=== PATIENT | male | born 1935 | race Caucasian/White ===

== ENCOUNTER 2017-03-28 21:15 | Observation (INO) | payer MEDICARE ==
[~2017-03-28] VITALS: Ht 172.7 cm; Wt 93.7 kg
[2017-03-28 21:22] VITALS: BP 112/57; PULSE 100; RESP 16; TEMP 98; O2SAT 96
--- NOTE | 2017-03-28 21:40 | PD ---
HPI Chief Complaint: GI Complaint Time Seen by Provider: 21:31 Travel History International Travel<30 days: No Contact w/Intl Traveler<30days: No Traveled to known affect area: No History of Present Illness HPI Patient is an 81-year-old male presents to emergency department for evaluation of rectal bleeding. Patient had a upper and lower endoscopy with Dr. Ledesma on this morning at about 07 100, states everything went fine he had one polyp removed from his ascending colon according documentation and then later this evening he started noticing some blood in his stool, just prior to arrival he had a large bowel movement filling the bowl with blood and some small clots. According to his he was sitting on a couch and had an episode where he became very pale and diaphoretic and was somewhat less responsive. He is hard of hearing. The same type of event happened in our waiting room with the patient became very pale while sitting upright. He denies any abdominal pain shortness of breath cough cold or congestion. The patient is on Pradaxa but is not taking this medication for 6 days prior to the procedure this morning and has been instructed not to take it for another 7 days after the procedure. He has been abiding by these recommendations has not had any blood thinner. PFSH Past Medical History Narrative Medical Atrial fibrillation, hypercholesterolemia ?: Not Past Surgical History Narrative Surgical Colonoscopy, back surgery Social History Tobacco Use: No Allergies-Medications (Allergen,Severity, Reaction): Coded Allergies: penicillin G (Unverified Allergy, Severe, 03/28/17) Reported Meds & Prescriptions Reported Meds & Active Scripts Active Reported Indomethacin 50 Mg Cap 50 Mg PO TID Take with food, milk, or antacids to decrease stomach adverse effects. Amlodipine-Benazepril 5-10 Mg Cap 1 Cap PO DAILY Cialis (Tadalafil) 5 Mg Tab 5 Mg PO DAILY Do not exceed 1 dose/day. Vitamin D3 (Cholecalciferol) 5,000 Unit Cap 5,000 Units PO DAILY Allopurinol 300 Mg Tab 300 Mg PO DAILY Simvastatin 20 Mg Tab 20 Mg PO DAILY Metoprolol Tartrate 50 Mg Tab 50 Mg PO BID Pradaxa (Dabigatran) 150 Mg Cap 150 Mg PO BID Review of Systems Except as stated in HPI: all other systems reviewed are Neg Physical Exam Narrative GENERAL: Well-developed well-nourished, no obvious distress SKIN: Focused skin assessment warm/dry. HEAD: Atraumatic. Normocephalic. EYES: Pupils equal and round. No scleral icterus. No injection or drainage. ENT: No nasal bleeding or discharge. Mucous membranes pink and moist. NECK: Trachea midline. No JVD. CARDIOVASCULAR: Regular rate and rhythm. No murmur appreciated. RESPIRATORY: No accessory muscle use. Clear to auscultation. Breath sounds equal bilaterally. GASTROINTESTINAL: Abdomen soft, non-tender, nondistended. Hepatic and splenic margins not palpable. Rectal exam does show a fair amount of blood in his underwear and on the stretcher. There is small blood clots as well. Grape size. MUSCULOSKELETAL: No obvious deformities. No clubbing. No cyanosis. No edema. NEUROLOGICAL: Awake and alert. Hearing aids in, otherwise cranial nerves II through XII are grossly intact and nonfocal, 5 out of 5 strength in all 4 extremities per PSYCHIATRIC: Appropriate mood and affect; insight and judgment normal. Data Data Last Documented VS Vital Signs Date Time Temp Pulse Resp B/P (MAP) Pulse Ox O2 Delivery O2 Flow Rate FiO2 03/28/17 23:27 84 18 115/81 (92) 98 Room Air 03/28/17 21:52 98.0 Orders Orders Complete Blood Count With Diff (03/28/17 21:31) Comprehensive Metabolic Panel (03/28/17 21:31) Lipase (03/28/17 21:31) Lactic Acid (03/28/17 21:31) Prothrombin Time / Inr (Pt) (03/28/17 21:31) Act Partial Throm Time (Ptt) (03/28/17 21:31) Urinalysis - C+S If Indicated (03/28/17 21:31) Ct Abd/Pel W Iv Contrast(Rout) (03/28/17 21:31) Iv Access Insert/Monitor (03/28/17 21:31) Ecg Monitoring (03/28/17 21:31) Oximetry (03/28/17 21:31) Sodium Chloride 0.9% Flush (Ns Flush) (03/28/17 21:45) Electrocardiogram (03/28/17 21:31) Chest, Single Ap (03/28/17 21:31) Type And Screen (03/28/17 21:31) Ammonia (03/28/17 21:31) Sodium Chlor 0.9% 1000 Ml Inj (Ns 1000 M (03/28/17 22:00) Iohexol 350 Inj (Omnipaque 350 Inj) (03/28/17 22:51) Admit Order (Ed Use Only) (03/29/17 ) Labs Laboratory Tests Test 03/28/17 21:30 White Blood Count 10.3 TH/MM3 Red Blood Count 4.95 MIL/MM3 Hemoglobin 14.7 GM/DL Hematocrit 43.6 % Mean Corpuscular Volume 88.1 FL Mean Corpuscular Hemoglobin 29.7 PG Mean Corpuscular Hemoglobin Concent 33.7 % Red Cell Distribution Width 12.7 % Platelet Count 195 TH/MM3 Mean Platelet Volume 9.0 FL Neutrophils (%) (Auto) 68.2 % Lymphocytes (%) (Auto) 23.1 % Monocytes (%) (Auto) 7.1 % Eosinophils (%) (Auto) 0.9 % Basophils (%) (Auto) 0.7 % Neutrophils # (Auto) 6.9 TH/MM3 Lymphocytes # (Auto) 2.4 TH/MM3 Monocytes # (Auto) 0.7 TH/MM3 Eosinophils # (Auto) 0.1 TH/MM3 Basophils # (Auto) 0.1 TH/MM3 CBC Comment DIFF FINAL Differential Comment Prothrombin Time 10.0 SEC Prothromb Time International Ratio 1.0 RATIO Activated Partial Thromboplast Time 24.7 SEC Blood Urea Nitrogen 19 MG/DL Creatinine 1.30 MG/DL Random Glucose 148 MG/DL Total Protein 6.8 GM/DL Albumin 3.4 GM/DL Calcium Level 8.7 MG/DL Alkaline Phosphatase 60 U/L Aspartate Amino Transf (AST/SGOT) 23 U/L Alanine Aminotransferase (ALT/SGPT) 22 U/L Total Bilirubin 0.4 MG/DL Sodium Level 140 MEQ/L Potassium Level 3.7 MEQ/L Chloride Level 103 MEQ/L Carbon Dioxide Level 27.7 MEQ/L Anion Gap 9 MEQ/L Estimat Glomerular Filtration Rate 53 ML/MIN Lactic Acid Level 2.8 mmol/L Ammonia 14 MCMOL/L Lipase 276 U/L MDM Medical Decision Making Medical Screen Exam Complete: Yes Emergency Medical Condition: Yes Differential Diagnosis Anemia, GI bleeding, postprocedure bleeding, acute abdomen unlikely, free air in the abdomen unlikely, perforated viscus unlikely. Narrative Course Patient room to the emergency department, fair amount of blood bright red and some clots are noted on physical exam, internal exam is deferred at this time. The patient hemoglobin is actually 14, lactic acid minimally elevated 2.8, given a liter of normal saline, vital signs have been normal while in the emergency department. He is alert and awake and oriented states he is feeling much better after the fluids. EKG was reviewed by me and is nonischemic, patient has not had any chest pain or shortness of breathPatient was discussed with Dr. Carrasco who agrees that the patient should be admitted to the hospital for serial H&H and if worsening or his vital signs are deteriorate he would examine the patient with repeat colonoscopy. At this time the patient is very stable and I think is stable for the floor, Dr. Carrasco believes he can stay in [place]. The patient will be discussed with Dr. Sage for admission Diagnosis Primary Impression: GI bleeding Qualified Codes: K92.2 - Gastrointestinal hemorrhage, unspecified Admitting Information Admitting Physician Requests: Admit Condition: Fair Brenton Guerrero MD Mar 28, 2017 21:40
[2017-03-28] MEDS ORDERED: SODIUM CHLORIDE 0.9% FLUSH 10 ML FLUSH IV FLUSH PRN (21:45)
[2017-03-28 21:52] VITALS: BP 127/76; PULSE 78; RESP 18; TEMP 98; O2SAT 100
[2017-03-28 21:56] LABS: AUTOMATED NEUTROPHIL # 6.9 TH/MM3 (1.8-7.7); BASOPHIL # 0.1 TH/MM3 (0-0.2); BASOPHIL % 0.7 % (0.0-2.0); EOSINOPHIL # 0.1 TH/MM3 (0-0.4); EOSINOPHIL % 0.9 % (0.0-4.0); HEMATOCRIT 43.6 % (39.0-51.0); HEMOGLOBIN 14.7 GM/DL (13.0-17.0); LYMPH % 23.1 % (9.0-44.0); LYMPHOCYTE # 2.4 TH/MM3 (1.0-4.8); MEAN CELL VOLUME 88.1 FL (80.0-100.0); MEAN CORPUSCULAR HEMOGLOBIN 29.7 PG (27.0-34.0); MEAN CORPUSCULAR HGB CONC 33.7 % (32.0-36.0); MONO % 7.1 % (0.0-8.0); MONOCYTE # 0.7 TH/MM3 (0-0.9); NEUT % 68.2 % (16.0-70.0); PLATELET COUNT 195 TH/MM3 (150-450); RED BLOOD COUNT 4.95 MIL/MM3 (4.50-5.90); RED CELL DISTRIBUTION WIDTH 12.7 % (11.6-17.2); WHITE BLOOD COUNT 10.3 TH/MM3 (4.0-11.0)
[2017-03-28] MEDS ORDERED: SODIUM CHLOR 0.9% 1000 ML INJ 1,000 ML IV ONE (22:00)
[2017-03-28 22:04] LABS: CHLORIDE 103 MEQ/L (98-107); SODIUM (NA) 140 MEQ/L (136-145)
[2017-03-28] MEDS ORDERED: INDO50CA PO (22:07)
[2017-03-28] MEDS ORDERED: ALLO300T2 PO (22:07)
[2017-03-28] MEDS ORDERED: CHOL5000 PO (22:07)
[2017-03-28] MEDS ORDERED: CIAL5TAB PO (22:07)
[2017-03-28] MEDS ORDERED: METO50TA PO (22:07)
[2017-03-28] MEDS ORDERED: PRAD150C PO (22:07)
[2017-03-28] MEDS ORDERED: SIMV20TA PO (22:07)
[2017-03-28] MEDS ORDERED: AMLO5CAP PO (22:07)
[2017-03-28 22:08] LABS: ALBUMIN 3.4 GM/DL (3.4-5.0); BICARBONATE 27.7 MEQ/L (21.0-32.0); BLOOD UREA NITROGEN 19 MG/DL (7-18); CALCIUM 8.7 MG/DL (8.5-10.1); GLUCOSE,RANDOM 148 MG/DL (74-106)
[2017-03-28 22:11] LABS: ALT (GPT) 22 U/L (12-78); AST (GOT) 23 U/L (15-37); GLOMERULAR FILTRATION RATE 53 ML/MIN (>89)
[2017-03-28 22:12] LABS: TOTAL BILIRUBIN ADULT 0.4 MG/DL (0.2-1.0)
[2017-03-28 22:13] LABS: TOTAL PROTEIN 6.8 GM/DL (6.4-8.2)
[2017-03-28 22:14] LABS: ALKALINE PHOSPHATASE 60 U/L (45-117)
--- NOTE | 2017-03-28 22:16 | RADRPT ---
EXAM DATE/TIME: 03/28/2017 21:38 [facility] COMPARISON: No previous studies available for comparison. INDICATIONS : Evaluate for free air. Post colonoscopy today. GI bleed. MEDICAL HISTORY : None. SURGICAL HISTORY : None. ENCOUNTER: Initial ACUITY: 1 day PAIN SCORE: 0/10 LOCATION: Bilateral chest FINDINGS: A single view of the chest demonstrates the lungs to be symmetrically aerated without evidence of mas s, infiltrate or effusion. The cardiomediastinal contours are unremarkable. Osseous structures are intact. CONCLUSION: 1. No acute findings. El Vargas MD on March 28, 2017 at 22:12 Board Certified Radiologist. This report was verified electronically.
[2017-03-28 22:34] VITALS: BP 125/85; PULSE 81; RESP 18; O2SAT 100
[2017-03-28] MEDS ORDERED: IOHEXOL 350 MG/ML 10 ML VIAL (for RAD DIAG) IVCONTRAST ONE (22:51)
--- NOTE | 2017-03-28 23:05 | RADRPT ---
EXAM DATE/TIME: 03/28/2017 22:38 [facility] COMPARISON: No previous studies available for comparison. INDICATIONS : Abdominal pain. Bright red rectal bleeding post colonoscopy. IV CONTRAST: 100 cc Omnipaque 350 (iohexol) IV ORAL CONTRAST: No oral contrast ingested. RADIATION DOSE: 19.42 CTDIvol (mGy) MEDICAL HISTORY : Hypertension. SURGICAL HISTORY : None. ENCOUNTER: Initial ACUITY: 1 day PAIN SCALE: 4/10 LOCATION: lower quadrant TECHNIQUE: Volumetric scanning of the abdomen and pelvis was performed. Using automated exposure control and ad justment of the mA and/or kV according to patient size, radiation dose was kept as low as reasonably achievable to obtain optimal diagnostic quality images. DICOM format image data is available electro nically for review and comparison. FINDINGS: Liver, gallbladder, spleen, pancreas, adrenal glands are unremarkable. There are bilateral renal cyst s identified, the largest on the left measuring 4.2 cm at the upper pole, the largest on the right me asuring 2.3 cm at the midpole. Atherosclerotic calcification of the aorta and iliac vessels. Urinary bladder, prostate unremarkable. No dilated loops of bowel, free fluid or free air identified. A few s cattered colonic diverticuli. The colon is fluid-filled. Review of bone windows demonstrates degenera tive changes of the spine. Lung bases are clear. CONCLUSION: 1. Bilateral renal cysts. 2. Atherosclerosis. 3. No obstruction, free fluid, or free air. Saroj Calderón MD on March 28, 2017 at 23:00 Board Certified Radiologist. This report was verified electronically.
[2017-03-28 23:27] VITALS: BP 115/81; PULSE 84; RESP 18; O2SAT 98
[2017-03-29] VITALS (8 sets, daily range): BP systolic 109–186; BP diastolic 76–111; PULSE 11–102; RESP 16–20; TEMP 96.2–98.4; O2SAT 95–98
[2017-03-29] MEDS: SODIUM CHLOR 0.9% 1000 ML INJ 1,000 ML IV SCH ×4 (00:19→16:04)
[2017-03-29 07:01] LABS: AUTOMATED NEUTROPHIL # 3.9 TH/MM3 (1.8-7.7); BASOPHIL % 0.7 % (0.0-2.0); EOSINOPHIL # 0.1 TH/MM3 (0-0.4); EOSINOPHIL % 1.2 % (0.0-4.0); HEMATOCRIT 34.5 % (39.0-51.0); HEMOGLOBIN 11.2 GM/DL (13.0-17.0); LYMPHOCYTE # 1.3 TH/MM3 (1.0-4.8); MEAN CELL VOLUME 87.7 FL (80.0-100.0); MEAN CORPUSCULAR HEMOGLOBIN 28.4 PG (27.0-34.0); MEAN CORPUSCULAR HGB CONC 32.3 % (32.0-36.0); MEAN PLATELET VOLUME 8.9 FL (7.0-11.0); MONO % 8.4 % (0.0-8.0); MONOCYTE # 0.5 TH/MM3 (0-0.9); NEUT % 67.7 % (16.0-70.0); PLATELET COUNT 147 TH/MM3 (150-450); RED BLOOD COUNT 3.94 MIL/MM3 (4.50-5.90); RED CELL DISTRIBUTION WIDTH 12.6 % (11.6-17.2); WHITE BLOOD COUNT 5.8 TH/MM3 (4.0-11.0)
[2017-03-29 08:02] LABS: BILIRUBIN, URINE NEG (NEG); BLOOD, URINE NEG (NEG); GLUCOSE,URINE NEG (NEG); KETONE, URINE NEG (NEG); NITRITE,URINE NEG (NEG); URINE LEUKOCYTE ESTERASE NEG (NEG)
[2017-03-29 08:09] LABS: URINE COLOR YELLOW (YELLW/STRAW); WBC, URINE 0-2 /hpf (0-5)
[2017-03-29 08:10] LABS: RBC, URINE 0-3 /hpf (0-3); SQUAMOUS EPITHELIAL CELL URINE 0-5 /hpf (0-5)
[2017-03-29 08:35] LABS: AUTOMATED NEUTROPHIL # 4.3 TH/MM3 (1.8-7.7); BASOPHIL % 0.2 % (0.0-2.0); EOSINOPHIL # 0.1 TH/MM3 (0-0.4); EOSINOPHIL % 0.9 % (0.0-4.0); HEMATOCRIT 33.7 % (39.0-51.0); HEMOGLOBIN 11.8 GM/DL (13.0-17.0); LYMPH % 23.7 % (9.0-44.0); LYMPHOCYTE # 1.5 TH/MM3 (1.0-4.8); MEAN CELL VOLUME 88.3 FL (80.0-100.0); MEAN CORPUSCULAR HEMOGLOBIN 30.8 PG (27.0-34.0); MEAN CORPUSCULAR HGB CONC 34.9 % (32.0-36.0); MONOCYTE # 0.5 TH/MM3 (0-0.9); NEUT % 67.2 % (16.0-70.0); PLATELET COUNT 135 TH/MM3 (150-450); RED BLOOD COUNT 3.82 MIL/MM3 (4.50-5.90); RED CELL DISTRIBUTION WIDTH 12.7 % (11.6-17.2); WHITE BLOOD COUNT 6.4 TH/MM3 (4.0-11.0)
[2017-03-29] MEDS ORDERED: TADALAFIL 5 MG PO SCH (09:00)
--- NOTE | 2017-03-29 09:43 | MB ---
cc: ARIEL MOMIN MD DATE OF CONSULTATION 03/29/2017 REASON FOR CONSULTATION REFERRING PHYSICIAN Dr. Sage REASON FOR CONSULTATION GI bleed HISTORY This is an 81-year-old male who was recently found to have heme-positive stool while on Pradaxa. His Pradaxa was held sometime last week and yesterday he underwent EGD and colonoscopy as an outpatient. EGD revealed some erosive antral gastritis and duodenitis, but no active bleeding from the upper GI tract. Colonoscopy revealed several small polyps and one larger polyp in the proximal ascending colon that was removed by snare polypectomy with cautery. The patient states that he felt well yesterday and went out for dinner, but after dinner when he was getting ready for bed, he developed some noisy bowel sounds and the urge to have a bowel movement and he passed some bright red blood per rectum along with some clots. He had a total of six bowel movements, but he states his last bowel movement was about 8 o'clock last night while he was here at the hospital. His hemoglobin on admission was 14.7, has fallen to 11.2 at 06:30 this morning, but it checked again at 08:10 and was 11.8. He did have some signs of dehydration on admission with a BUN of 19, creatinine of 1.3. He has no abdominal pain, but does feel that his bowels are active. He denies any nausea or vomiting and otherwise states that he feels well. PAST MEDICAL HISTORY His medical history is remarkable for: 1. Atrial fibrillation 2. Hyperlipidemia SOCIAL HISTORY His is at the bedside. He does not use tobacco. ALLERGIES His allergies are to PENICILLIN. MEDICATIONS His medications are: 1. Amlodipine with Benazepril 5/10 mg daily 2. Cialis 5 mg daily 3. Vitamin D3 5000 units daily 4. Allopurinol 300 mg daily 5. Simvastatin 20 mg daily 6. Metoprolol 50 mg twice a day 7. Indomethacin p.r.n. and Pradaxa has been on hold. REVIEW OF SYSTEMS Remarkable for the mild abdominal cramping and bloody stools, otherwise negative. PHYSICAL EXAM Physical exam reveals a well-developed male in no acute distress. He is in good spirits. VITAL SIGNS: His blood pressure is 126/77, pulse this morning was 102, but is currently around 90 and his heart rate is irregular. Respiratory rate is 20 and nonlabored, temperature is 96.2 orally. HEAD, EYES, EARS, NOSE, AND THROAT: Sclerae anicteric. NECK: Supple without masses or JVD. LUNGS: Clear to auscultation. HEART: Heart sounds are irregular. ABDOMEN: Soft and nontender. Bowel sounds are hyperactive. RECTAL: Deferred. EXTREMITIES: No peripheral edema. SKIN: Color is good. Skin is warm and dry. NEUROLOGIC: He is alert and well-oriented with a pleasant affect. LABORATORY FINDINGS His electrolytes are unremarkable. BUN 19, creatinine 1.3, lactic acid was 2.8. Liver enzymes are normal. Lipase is normal. PT is 10 with an INR of 1.0. Platelet count is 195,000 on admission and 135,000 this morning. He did have a chest x-ray last night which was unremarkable and a CT scan of the abdomen and pelvis with IV contrast, but no oral contrast and this was unremarkable. Bilateral renal cysts and some atherosclerosis. IMPRESSION Lower GI bleed. Most likely post polypectomy bleed. Most likely from the large polypectomy in the proximal ascending colon. The patient's last bowel movement was almost 12 hours ago and his vital signs are stable. PLAN I discussed the situation with the patient and his at the bedside. He is on clear liquids. We will monitor his H&H closely and I have asked him to report further passage of blood. Hopefully this will stop on its own. If not, we will need to reprep for repeat colonoscopy for hemostasis. We will follow closely with you. Thank you this consult. MD RUSS Guevara/KEVIN /9:03 AM /9:26 AM GRAY
[2017-03-29] MEDS: METOPROLOL TARTRATE 50 MG TAB PO SCH ×2 (10:33→20:45)
[2017-03-29] MEDS: PRAVASTATIN SOD 40 MG TAB PO SCH (10:33)
[2017-03-29] MEDS: ALLOPURINOL 300 MG TAB PO SCH (10:33)
[2017-03-29 12:41] LABS: AUTOMATED NEUTROPHIL # 3.9 TH/MM3 (1.8-7.7); BASOPHIL % 0.2 % (0.0-2.0); EOSINOPHIL % 0.5 % (0.0-4.0); HEMATOCRIT 33.5 % (39.0-51.0); HEMOGLOBIN 10.8 GM/DL (13.0-17.0); LYMPH % 17.9 % (9.0-44.0); MEAN CELL VOLUME 87.5 FL (80.0-100.0); MEAN CORPUSCULAR HEMOGLOBIN 28.2 PG (27.0-34.0); MEAN CORPUSCULAR HGB CONC 32.2 % (32.0-36.0); MEAN PLATELET VOLUME 9.2 FL (7.0-11.0); MONO % 7.6 % (0.0-8.0); MONOCYTE # 0.4 TH/MM3 (0-0.9); NEUT % 73.8 % (16.0-70.0); PLATELET COUNT 145 TH/MM3 (150-450); RED BLOOD COUNT 3.82 MIL/MM3 (4.50-5.90); RED CELL DISTRIBUTION WIDTH 12.7 % (11.6-17.2); WHITE BLOOD COUNT 5.3 TH/MM3 (4.0-11.0)
[2017-03-29] MEDS ORDERED: PEG (High)/E-LYTE SOLN 4000 ML BTL PO ONE (15:30)
[2017-03-29 19:06] LABS: HEMATOCRIT 36.6 % (39.0-51.0); HEMOGLOBIN 11.8 GM/DL (13.0-17.0); MEAN CELL VOLUME 88.3 FL (80.0-100.0); MEAN CORPUSCULAR HEMOGLOBIN 28.4 PG (27.0-34.0); MEAN CORPUSCULAR HGB CONC 32.1 % (32.0-36.0); MEAN PLATELET VOLUME 8.6 FL (7.0-11.0); PLATELET COUNT 149 TH/MM3 (150-450); RED BLOOD COUNT 4.14 MIL/MM3 (4.50-5.90); RED CELL DISTRIBUTION WIDTH 12.3 % (11.6-17.2); WHITE BLOOD COUNT 5.9 TH/MM3 (4.0-11.0)
[2017-03-29] MEDS ORDERED: ENALAPRILAT 2.5 MG/2 ML VIAL IV PUSH PRN (19:30)
--- NOTE | 2017-03-29 19:56 | GIPROC ---
[address], [address] COLONOSCOPY PROCEDURE REPORT EXAM DATE: 03/29/2017 PATIENT NAME: Yogi Cast MR #: [id number] BIRTHDATE: 1935 ENDOSCOPIST: John Carrasco MD ORDER #: [id number] CONSULTING MARINE ENGINEER: Isra Garner and Janice Peralta STATUS: inpatient INDICATIONS: The patient is a 81 yr old male here for a colonoscopy due to control of bleeding PROCEDURE PERFORMED: Colonoscopy with control of bleeding MEDICATIONS: None and Per Anesthesia. PREP QUALITY: excellent PREP TYPE:GoLytely ESTIMATED BLOOD LOSS: None CONSENT: The patient understands the risks and benefits of the procedure and understands that these risks include, but are not limited to: sedation, allergic reaction, infection, perforation and/or bleeding. Alternative means of evaluation and treatment include, among others: physical exam, x-rays, and/or surgical intervention. The patient elects to proceed with this endoscopic procedure. medical equipment was checked for proper function. Hand hygiene and appropriate measures for infection prevention was taken. After the risks, benefits and alternatives of the procedure were thoroughly explained, Informed consent was verified, confirmed and timeout was successfully executed by the treatment team. A digital exam revealed no abnormalities of the rectum The Pentax [id number] endoscope was introduced through the anus and advanced to the cecum, which was identified by both the appendix and ileocecal valve. The instrument was then slowly withdrawn as the colon was fully examined. COLON FINDINGS: Recent post-polypectomy site proximal ascending colon with ulcer base and a visible nonbleeding vessel. Base injected with 1cc 50% Dextrose. (2 injections 0.5cc each). The colon mucosa was otherwise normal. Retroflexion was not performed The scope was then completely withdrawn from the patient and the procedure terminated. ADVERSE EVENTS: There were no complications. IMPRESSIONS: 1. Recent post-polypectomy site proximal ascending colon with ulcer base and a visible nonbleeding vessel 2. Base injected with 1cc 50% Dextrose. (2 injections 0.5cc each) 3. The colon mucosa was otherwise normal 4. Retroflexion was not performed 5. Revealed no abnormalities of the rectum RECOMMENDATIONS: Resume clear liquids and watch for rebleeding. RECALL: Return 1 year Colonoscopy John Carrasco MD eSigned: John Carrasco MD 03/29/2017 7:56 PM cc: Ace Sage M.D.
[2017-03-29] MEDS ORDERED: DEXTROSE 50% IN WATER 50 ML VIAL(D50) IV PUSH ONE (20:19)
[2017-03-29] MEDS ORDERED: LISINOPRIL 10 MG TAB PO SCH (21:00)
[2017-03-29] MEDS ORDERED: amLODIPine BESYLATE 5 MG TAB PO SCH (21:00)
--- NOTE | 2017-03-29 21:26 | EKG ---
Date Performed: 03/28/2017 Time Performed: 21:41:42 PTAGE: 81 years EKG: ATRIAL FIBRILLATION LOW QRS VOLTAGE IN PRECORDIAL LEADS POSSIBLE RIGHT VENTRICULAR CONDUCTI ON DELAY NONSPECIFIC ST & T-WAVE ABNORMALITY ABNORMAL RHYTHM ECG PREVIOUS TRACING : 08/15/2004 11.18 Since the prior tracing, there has been no significant bernard DOCTOR: Alex Ponce Interpretating Date/Time 03/29/2017 21:25:36
[2017-03-30 01:25] VITALS: BP 149/108; PULSE 81; RESP 16; TEMP 97.5; O2SAT 99
[2017-03-30 06:39] LABS: HEMATOCRIT 34.4 % (39.0-51.0); HEMOGLOBIN 11.4 GM/DL (13.0-17.0); MEAN CELL VOLUME 88.8 FL (80.0-100.0); MEAN CORPUSCULAR HEMOGLOBIN 29.3 PG (27.0-34.0); MEAN PLATELET VOLUME 9.4 FL (7.0-11.0); PLATELET COUNT 139 TH/MM3 (150-450); RED BLOOD COUNT 3.88 MIL/MM3 (4.50-5.90); RED CELL DISTRIBUTION WIDTH 12.6 % (11.6-17.2); WHITE BLOOD COUNT 5.8 TH/MM3 (4.0-11.0)
[2017-03-30 07:02] LABS: CALCIUM 8.1 MG/DL (8.5-10.1)
[2017-03-30 07:03] LABS: BICARBONATE 28.1 MEQ/L (21.0-32.0)
[2017-03-30 07:06] LABS: CREATININE 0.92 MG/DL (0.60-1.30)
--- NOTE | 2017-03-30 07:23 | HHI.GIFU ---
GI Follow-up Note Consult Follow-up Subjective: Patient laying in bed comfortably, no complaints and no further bleeding. at bedside. Objective: PHYSICAL EXAMINATION: Vitals signs stable No fever ABDOMEN: Soft, nondistended, nontender SYSTEM SUPPORT DEVELOPER: alert and oriented times three. Available Data (labs, X- Rays, Procedues) : Hgb 11.4 ASSESSMENT/PLAN: 1. Post-polypectomy bleed-stable. Will advance diet and if no further bleeding can discharge home this afternoon. Advised pt to avoid ASA and NSAIDS for at least 2 weeks and he will resume his Pradaxa next Monday. It was a pleasure seeing Yogi Cast. Thank you for this consult. Entered by: John Larios MD Mar 30, 2017 07:23
[2017-03-30 07:50] VITALS: BP 147/88; PULSE 89; RESP 20; TEMP 99.1; O2SAT 96
[2017-03-30] MEDS: PRAVASTATIN SOD 40 MG TAB PO SCH (08:59)
[2017-03-30] MEDS: METOPROLOL TARTRATE 50 MG TAB PO SCH (08:59)
--- NOTE | 2017-03-30 09:01 | HHI.PR ---
Subjective Remarks Patient underwent colonoscopy late yesterday. No evidence of persistent bleeding. He is tolerating a regular diet for breakfast. He has been up out of bed and ambulating without difficulty. Usual and hypertensive medications were resumed last evening due to elevated blood pressure. IV fluids of an discontinued. Urine output is good. Current Medications Medications (Trade) Dose Ordered Sig/Nazia Route Start Time Stop Time Status Last Admin (NS Flush) 2 ml UNSCH PRN IV FLUSH 03/28/17 21:45 Sodium Chloride 1,000 ml @ 84 mls/hr [id number] IV 03/29/17 00:15 03/29/17 16:04 (Zyloprim) 300 mg DAILY PO 03/29/17 09:00 03/29/17 10:33 (Lopressor) 50 mg BID PO 03/29/17 09:00 03/29/17 20:45 (Pravachol) 40 mg DAILY PO 03/29/17 09:00 03/29/17 10:33 Patient Own Medication PT OWN MED: TADALA... DAILY PO 03/29/17 09:00 Future Hold (Norvasc) 5 mg HS PO 03/29/17 21:00 03/29/17 20:46 (Prinivil) 10 mg HS PO 03/29/17 21:00 03/29/17 20:46 (Vasotec Inj) 2.5 mg Q8H PRN IV PUSH 03/29/17 19:30 Objective Vital Signs Date Time Temp Pulse Resp B/P (MAP) Pulse Ox O2 Delivery O2 Flow Rate FiO2 03/30/17 01:25 97.5 81 16 149/108 (122) 99 03/29/17 22:01 97.6 76 16 145/99 (114) 98 03/29/17 20:15 98.5 84 16 140/76 (97) 97 03/29/17 20:00 98.4 97 16 125/84 (98) 97 03/29/17 19:00 100 16 163/96 (118) 99 03/29/17 18:30 106 16 158/91 (113) 96 03/29/17 18:00 103 16 148/93 (111) 97 03/29/17 17:30 101 16 150/96 (114) 97 03/29/17 17:10 100 18 158/95 (116) 97 03/29/17 16:39 98.4 11 18 186/111 (136) 97 03/29/17 15:50 97.9 96 20 168/92 (117) 95 03/29/17 11:50 97.6 70 20 125/83 (97) 96 I/O 03/29/17 03/29/17 03/29/17 03/30/17 03/30/17 03/30/17 07:00 15:00 23:00 07:00 15:00 23:00 Intake Total 1000 ml 500 ml Output Total 225 ml Balance 1000 ml 275 ml Intake IV Total 1000 ml Other 500 ml Output Urine Total 225 ml # Voids 2 1 # Bowel Movements 5 General: No acute distress Cardiovascular: I RRR Lungs: Clear to auscultation Abdomen: Soft, nontender, nondistended with bowel sounds present Extremities: No edema or calf tenderness Result Diagram: 03/30/1751403/30/17514 Assessment and Plan Problem List: (1) GI bleeding ICD Codes: K92.2 - Gastrointestinal hemorrhage, unspecified Status: Resolved Plan: No evidence of any active bleeding. If patient tolerates heart healthy diet for breakfast and lunch, can discharge home later today. (2) Chronic atrial fibrillation ICD Codes: I48.2 - Chronic atrial fibrillation Status: Chronic Plan: Ventricular rate is well controlled. The patient will resume Pradaxa next Monday. (3) Hypertension ICD Codes: I10 - Essential (primary) hypertension Status: Chronic Plan: The patient has just resumed his usual antibiotic and hypertensive medication. Will follow. (4) Hyperlipidemia ICD Codes: E78.5 - Hyperlipidemia, unspecified Plan: The patient will resume simvastatin upon discharge. (5) Hyperuricemia ICD Codes: E79.0 - Hyperuricemia without signs of inflammatory arthritis and tophaceous disease Status: Chronic Plan: Continue with allopurinol Discussed Condition With Patient and at bedside Discharge Planning Plan to discharge home later today if tolerates breakfast and lunch Problem Qualifiers (1) GI bleeding: Qualified Codes: K92.2 - Gastrointestinal hemorrhage, unspecified (2) Hypertension: Qualified Codes: I10 - Essential (primary) hypertension (3) Hyperlipidemia: Qualified Codes: E78.2 - Mixed hyperlipidemia Ace Sage MD Mar 30, 2017 09:01
[2017-03-30] MEDS: ALLOPURINOL 300 MG TAB PO SCH (09:03)
[2017-03-30 09:17] LABS: HEMATOCRIT 34.4 % (39.0-51.0); HEMOGLOBIN 12.1 GM/DL (13.0-17.0)
--- NOTE | 2017-03-30 09:45 | MH ---
cc: YOEL CARDENAS DATE OF ADMISSION 03/29/2017 ADMISSION DIAGNOSIS Gastrointestinal hemorrhage. HISTORY OF PRESENT ILLNESS This is a 81-year-old white male well-known to the undersigned physician underwent a colonoscopy with polypectomy on the day prior to admission. Late on the evening prior to admission, he had some abdominal discomfort. He went to the bathroom and passed a large amount of bright red blood per rectum. He had several more episodes similar to that. At that time, he elected to report to the emergency department for further evaluation and treatment. Upon arrival to the emergency department, he had a near syncopal episode. He was given IV fluids and had one additional episode of red blood per rectum in the emergency department. At that time, it was felt the patient would need to be admitted for monitoring and possible further evaluation. PAST MEDICAL HISTORY The patient's past medical history is significant for: 1. Chronic atrial fibrillation. He normally takes Pradaxa for anticoagulation, but it has been on hold for five days prior to admission. 2. He has a history of hypertension. 3. Hyperlipidemia 4. Hyperuricemia with previous episodes of gout. 5. Hemorrhoids 6. History of colonic polyps. 7. Benign prostatic hypertrophy with lower urinary tract Symptoms and erectile dysfunction. MEDICATIONS His current medications are: 1. Vitamin D3 5000 international units daily 2. Simvastatin 20 mg daily 3. Pantoprazole 40 mg daily 4. Indomethacin 50 mg 1 tablet three times a day as needed for gout. 5. Amlodipine 6. Benazepril 5/10 mg one tablet daily 7. Metoprolol tartrate 50 mg twice daily 8. Allopurinol 300 mg daily PAST SURGICAL HISTORY Surgical history is positive for: 1. Hemorrhoidectomy in 1968. 2. Tonsillectomy in 1945. 3. A lumbar laminectomy at L5-S1 done in 2009. ALLERGIES He has an allergy to PENICILLIN. FAMILY HISTORY Noncontributory SOCIAL HISTORY He is and retired. He is a retired businessman. He does not smoke. He drinks alcohol on a social basis. He lives with his . REVIEW OF SYSTEMS The review of systems is negative for any chest pain, shortness of breath, nausea, vomiting, fever, chills, night sweats, cough, sputum production, unexplained weight loss, unexplained weight gain, heat or cold intolerance, dry skin, brittle nails difficulty swallowing, visual changes, tremors, headaches. He has had no lateralizing deficits, rashes,, weakness or numbness in the upper and lower extremities, low back pain, arthritic pains. He does have nocturia x2, but denies any decreased urinary stream, dysuria, hematuria or urinary incontinence. PHYSICAL EXAMINATION Upon arrival to emergency department, the blood pressure was 112/57 with a heart rate of 100, respirations 16, temperature 98 degrees Fahrenheit, oxygen saturation on room air is 96%. GENERAL: The patient is a well-nourished, well-developed elderly white male sitting in a bed in no acute distress. HEENT: Pupils equal, round, and react to light. Extraocular movements are intact. Sclerae anicteric. Nares patent without discharge. Mouth and throat clear with moist mucous membranes. No erythema or exudates. NECK: Supple without lymphadenopathy, JVD, bruits or thyromegaly. CARDIOVASCULAR: Irregular rate and rhythm without murmurs, rubs or gallops. LUNGS: Clear to auscultation without wheezes, rhonchi or rales. ABDOMEN: Mildly distended, soft, nontender, bowel sounds present. No masses palpable. No hepatosplenomegaly. AND RECTAL: Deferred. EXTREMITIES: Lower extremities: Reveal no appreciable edema. No calf tenderness. No Homans' sign. SKIN: Warm and dry. NEUROLOGIC: Examination is nonfocal. LABORATORY DATA The white blood cell count was 10.3, hemoglobin 14.7, hematocrit 43.6, platelet count was 195,000. The comprehensive metabolic profile was significant for a BUN of 19, creatinine 1.30. The INR was 1.0, APTT 24.7. Urinalysis revealed a specific gravity of 1.035, pH 5.0. All the other indices were within normal limits. Chest x-ray revealed no acute cardiopulmonary disease. A CT scan of the abdomen and pelvis revealed bilateral renal cysts, atherosclerosis, but no obstruction, free air, or free fluid. IMPRESSION AND PLAN This 81-year white male presents with a bright red blood per rectum likely consist with lower gastrointestinal hemorrhage. The most likely etiology would be from the site of the polypectomy done the day prior to admission. The patient has now been six hours since admission and he has had no further bowel movements. I have spoken with Dr. Carrasco, the patient's weapons officer naval activity, and the plan at this point will be to place the patient in observation and provide him with IV fluids. He appears to be mildly dehydrated which could be the result of the recent colonoscopy prep. This would explain the higher than usual hemoglobin. We will provide the patient with IV fluids, place him on a clear liquid diet and monitor for any recurrent bleeding. Check H&H every six hours and if he continues to have a decrease in H&H, we will consider repeat colonoscopy and possibly clipping of the offending vessel. Otherwise, we will hold a portion of the patient's normal antihypertensive medications due to the low blood pressure and resume when needed. We will continue with metoprolol to help maintain control of his ventricular rate. His anticoagulation is on hold at this time. I have explained the plan of care to the patient has who is at the bedside, both expressed understanding and agreement. MD CHANDLER Moreira/KEVIN /8:49 AM /9:10 AM
[2017-03-30 11:50] VITALS: BP 121/74; PULSE 87; RESP 20; TEMP 97.9; O2SAT 94
[2017-03-30] MEDS ORDERED: PROPOFOL 200 MG/20 ML AMP IV ONE (12:00)
== END 2017-03-30 15:20 | disposition home or self-care (01) ==
LOC: PHED 21:15 → PHEDA 03-29 00:04 → PH3A 03-29 01:40
PROVIDERS: ADMIT Family Medicine; ATTEND Family Medicine
DX: K91.840 Postprocedural hemorrhage of a digestive system organ or structure following a digestive system procedure (principal); R55 Syncope and collapse; I48.2 Chronic atrial fibrillation; I10 Essential (primary) hypertension; E78.2 Mixed hyperlipidemia; I70.0 Atherosclerosis of aorta; Q61.02 Congenital multiple renal cysts; E79.0 Hyperuricemia without signs of inflammatory arthritis and tophaceous disease; Z79.899 Other long term (current) drug therapy; Z79.01 Long term (current) use of anticoagulants; Z88.0 Allergy status to penicillin; Y83.8 Other surgical procedures as the cause of abnormal reaction of the patient, or of later complication, without mention of misadventure at the time of the procedure
CPT/HCPCS: 00811; 36415; 45382; 71045; 74177; 80048; 80053; 81001; 82140; 83605; 83690; 85014; 85018; 85025; 85027; 85610; 85730; 86850; 86900; 86901; 93005; 96360; 96361; 99285; G0378; J7030; Q9967